=== PATIENT | female | born 1985 | race Caucasian/White ===

== ENCOUNTER 2020-05-10 09:55 | Day surgery (SDC) | payer BC ==
[2020-05-07 14:36] VITALS: BMI 30.1
[2020-05-10] MEDS ORDERED: BUPIVACAINE HCL/PF 2.5 MG/ML - 30 ML VIAL IJ ONE (10:42)
[2020-05-10] MEDS ORDERED: KETOROLAC TROMETHAMINE 30 MG/1 ML VIAL ONE (10:43)
[2020-05-10] MEDS ORDERED: DEXAMETHASONE SOD PHOSPHATE 4 MG/1 ML VIAL ONE (10:43)
[2020-05-10] MEDS ORDERED: CLINDAMYCIN PHOSPHATE 600 MG/4 ML VIAL ONE (10:43)
[2020-05-10] MEDS ORDERED: LIDOCAINE HCL/PF 2% SDV 5ML VIAL ONE (10:43)
[2020-05-10] MEDS ORDERED: LIDOCAINE HCL 2% JELLY (5 ML/TUBE) ONE (10:43)
[2020-05-10] MEDS ORDERED: MIDAZOLAM HCL 2 MG/2 ML SINGLE DOSE VIAL ONE (10:44)
[2020-05-10] MEDS ORDERED: PROPOFOL 20 ML ONE (10:44)
[2020-05-10] MEDS ORDERED: SEVOFLURANE 250 ML BTL ONE (11:50)
[2020-05-10] MEDS ORDERED: BUPIVACAINE HCL/PF 0.25% (2.5MG/ML) 10 ML VIAL IJ ONE (12:00)
[2020-05-10] MEDS ORDERED: PROMETHAZINE HCL 25 MG/1 ML VIAL IVPUSH PRN (12:15)
[2020-05-10] MEDS ORDERED: oxyCODONE HCL 5 MG TABLET PO PRN ×2 (12:15)
[2020-05-10] MEDS ORDERED: ONDANSETRON 4 MG/2 ML VIAL IVPUSH PRN (12:15)
[2020-05-10] MEDS ORDERED: ACETAMINOPHEN 1000 MG/100 ML BAG IVPB ONE (12:30)
[2020-05-10] MEDS ORDERED: ACETAMINOPHEN INJECTION 100 ML IVPB ONE (12:31)
[2020-05-10] MEDS ORDERED: ONDANSETRON 4 MG/2 ML VIAL ONE (12:48)
[2020-05-10 14:09] VITALS: BP 117/63; PULSE 78; TEMP 98.1
== END 2020-05-10 14:00 | disposition home or self-care (01) ==
LOC: FASU 09:55
PROVIDERS: ATTEND Orthopaedic Surgery
PROC: 0SBC4ZZ Excision of Right Knee Joint, Percutaneous Endoscopic Approach (ICD-10-PCS; 2020-05-10)
PROC: 0SBC4ZZ Excision of Right Knee Joint, Percutaneous Endoscopic Approach (ICD-10-PCS; 2020-05-10)
PROC: 0MNN4ZZ Release Right Knee Bursa and Ligament, Percutaneous Endoscopic Approach (ICD-10-PCS; 2020-05-10)
PROC: 0SBC4ZZ Excision of Right Knee Joint, Percutaneous Endoscopic Approach (ICD-10-PCS; principal; 2020-05-10 11:38)
DX: S83.241A Other tear of medial meniscus, current injury, right knee, initial encounter (principal); S83.281A Other tear of lateral meniscus, current injury, right knee, initial encounter; S83.011A Lateral subluxation of right patella, initial encounter; M94.8X6 Other specified disorders of cartilage, lower leg; M65.861 Other synovitis and tenosynovitis, right lower leg; X58.XXXA Exposure to other specified factors, initial encounter; Y93.9 Activity, unspecified; Y92.9 Unspecified place or not applicable; Y99.9 Unspecified external cause status
CPT/HCPCS: 84703; 88304-TC; 94760; J0131